=== PATIENT | female | born 1950 | race Caucasian/White ===

== ENCOUNTER 2019-09-09 16:06 | Emergency (ER) | payer MEDICARE ==
[~2019-09-09] VITALS: Ht 162.6 cm; Wt 52.3 kg
[2019-09-09 16:22] VITALS: BP 125/76
--- NOTE | 2019-09-09 16:27 | NUR ---
TORRI HERNANDEZ' FROM [facility] AFTER PT WAS FOUND TO BE SWAPPING LICENSE PLATES. PT WAS THEN PUT ON LEGAL HOLD BY [employer] FOR REFUSING TO TAKE ANTI-PSYCHOTICS AND FAILURE TO CARE FOR SELF. PT RELEASED FROM [facility] AND BROUGHT TO ED. DENIES SI/HI/HEARING VOICES,HALLUCINATIONS. DENIES ANY PSYCH HX. PT RESTING ON GURNEY. PERSONAL BELONGINGS BAG (1 OF 1) PLACED IN SECURE LOCKER. SITTER AT BEDSIDE. ROOM SECURED. EDEN HIGHTOWER AT BEDSIDE.
--- NOTE | 2019-09-09 16:36 | NUR ---
HAMILTON HIGH AWARE OF NEED TO COME TO SEE PT.
--- NOTE | 2019-09-09 16:41 | NUR ---
PT PROVIDED W/ SI DINNER TRAY. SITTER REMAINS AT BEDSIDE. ROOM REMAINS SECURE.
--- NOTE | 2019-09-09 17:08 | NUR ---
SW AT BEDSIDE.
--- NOTE | 2019-09-09 18:25 | NUR ---
PT CONTINUES TO DENY SI/HI/HALLUCINATIONS. LEGAL HOLD DECERTIFIED. [employer]AXI VOUCHER PROVIDED TO PT. PT STATES SHE HAS KEYS TO GET INTO HER HOUSE. PT PROVIDED W/ ALL OF HER PERSONAL BELONGINGS.
== END 2019-09-09 18:37 | disposition home or self-care (01) ==
LOC: ED 17:34
DX: F31.9 Bipolar disorder, unspecified (principal); Z72.9 Problem related to lifestyle, unspecified; Z91.14 Patient's other noncompliance with medication regimen; Z63.8 Other specified problems related to primary support group
CPT/HCPCS: 99283